=== PATIENT | female | born 1970 | race Caucasian/White ===

== ENCOUNTER 2016-08-10 23:44 | Observation (INO) | payer SELFPAY ==
[~2016-08-10] VITALS: Ht 160 cm; Wt 70.0 kg
[~2016-08-10 23:44] MED LIST: KCL10C PO
[2016-08-10 23:47] VITALS: BP 170/112; PULSE 76; RESP 18; TEMP 98.3; O2SAT 98
[2016-08-10 23:52] VITALS: RESP 16; O2SAT 98
--- NOTE | 2016-08-10 23:55 | PD ---
HPI Chief Complaint: Chest Pain Time Seen by Provider: 23:45 Travel History International Travel<30 days: No Contact w/Intl Traveler<30days: No Traveled to known affect area: No History of Present Illness HPI The patient is a 45-year-old female who presents to the emergency department for chest pain. The patient was watching TV earlier [employer], when she developed chest pain. The chest pain was left-sided, "achy " , radiated to left arm, and states that she felt like her "left arm is holding a bowling ball ". Patient denies any exertional symptoms with her chest pain, denied any shortness of breath, but did complain of mild nausea. The patient does have a history of hypertension and is noncompliant, but denies any known history of hyperlipidemia, artery disease, or diabetes. The patient does have a history of tobacco use and a pack and a half of cigarettes per day. She also notes a family history of early heart disease, states her father had his first IL in his 50s. The patient denies any previous history of stress test or cardiac catheterization. The patient does note recent fatigue that is worse with exertion, but denies any actual chest pain with exertion. Symptoms are moderate, no known alleviating or exacerbating factors. The patient took aspirin prior to arrival, 6 baby aspirin. The patient denies any previous history of pulmonary embolism, DVT, or recent prolonged travel, hospitalizations , or surgery. PFSH Past Medical History Cardiovascular Problems: Yes (HTN, angina) ?: Not LMP: 2 weeks ago : 8 Para: 4 Ectopic : Yes (X2) Social History Alcohol Use: Yes Tobacco Use: Yes (1PPD ) Substance Use: No Allergies-Medications (Allergen,Severity, Reaction): Coded Allergies: No Known Allergies (Unverified , 08/10/16) Reported Meds & Prescriptions Reported Meds & Active Scripts Active No Active Prescriptions or Reported Medications Review of Systems Except as stated in HPI: all other systems reviewed are Neg HENT: No: Lightheadedness Cardiovascular: Positive: Chest Pain or Discomfort, No: Tachycardia, Diaphoresis, Dyspnea on exertion Respiratory: No: Shortness of Breath Gastrointestinal: Positive: Nausea, No: Vomiting, Abdominal Pain Musculoskeletal: Positive: Weakness Neurologic: No: Dizziness Physical Exam Narrative GENERAL: Awake, alert, pleasant 45-year-old female who appears her stated age and is in no acute respiratory distress. SKIN: Warm and dry. HEAD: Atraumatic. Normocephalic. EYES: Pupils equal and round. No scleral icterus. No injection or drainage. ENT: No nasal bleeding or discharge. Mucous membranes pink and moist. NECK: Trachea midline. No JVD. CARDIOVASCULAR: Regular rate and rhythm. No murmur appreciated. RESPIRATORY: No accessory muscle use. Clear to auscultation. Breath sounds equal bilaterally. GASTROINTESTINAL: Abdomen soft, non-tender, nondistended. No rebound tenderness. MUSCULOSKELETAL: Right foot is in a postop shoe. NEUROLOGICAL: Awake and alert. No obvious cranial nerve deficits. Motor grossly within normal limits. Normal speech. PSYCHIATRIC: Appropriate mood and affect; insight and judgment normal. Data Data Last Documented VS Vital Signs Date Time Temp Pulse Resp B/P Pulse Ox O2 Delivery O2 Flow Rate FiO2 08/11/16 01:08 70 18 152/88 98 Room Air 08/10/16 23:47 98.3 Orders Electrocardiogram (08/10/16 23:51) Ckmb (Isoenzyme) Profile (08/10/16 23:51) Complete Blood Count With Diff (08/10/16 23:51) Comprehensive Metabolic Panel (08/10/16 23:51) Magnesium (Mg) (08/10/16 23:51) Prothrombin Time / Inr (Pt) (08/10/16 23:51) Act Partial Throm Time (Ptt) (08/10/16 23:51) Troponin I (08/10/16 23:51) Lipase (08/10/16 23:51) Chest, Single Ap (08/10/16 23:51) Ecg Monitoring (08/10/16 23:51) Bilateral Bp Monitoring (08/10/16 23:51) Iv Access Insert/Monitor (08/10/16 23:51) Oximetry (08/10/16 23:51) Oxygen Administration (08/10/16 23:51) Morphine Inj (Morphine Inj) (08/11/16 00:00) Nitroglycerin 2% Oint (Nitroglycerin 2% (08/11/16 00:00) Sodium Chloride 0.9% Flush (Ns Flush) (08/11/16 00:00) Ondansetron Inj (Zofran Inj) (08/11/16 00:00) CKMB (08/11/16 00:15) CKMB% (08/11/16 00:15) Labs Laboratory Tests Test 08/11/16 00:15 White Blood Count 5.5 TH/MM3 Red Blood Count 4.19 MIL/MM3 Hemoglobin 13.7 GM/DL Hematocrit 39.9 % Mean Corpuscular Volume 95.0 FL Mean Corpuscular Hemoglobin 32.6 PG Mean Corpuscular Hemoglobin 34.3 % Concent Red Cell Distribution Width 13.9 % Platelet Count 133 TH/MM3 Mean Platelet Volume 7.8 FL Neutrophils (%) (Auto) 56.1 % Lymphocytes (%) (Auto) 33.2 % Monocytes (%) (Auto) 8.0 % Eosinophils (%) (Auto) 2.2 % Basophils (%) (Auto) 0.5 % Neutrophils # (Auto) 3.1 TH/MM3 Lymphocytes # (Auto) 1.8 TH/MM3 Monocytes # (Auto) 0.4 TH/MM3 Eosinophils # (Auto) 0.1 TH/MM3 Basophils # (Auto) 0.0 TH/MM3 CBC Comment DIFF FINAL Differential Comment Prothrombin Time 10.0 SEC Prothromb Time International 0.9 RATIO Ratio Activated Partial 27.1 SEC Thromboplast Time Sodium Level 138 MEQ/L Potassium Level 3.9 MEQ/L Chloride Level 105 MEQ/L Carbon Dioxide Level 23.4 MEQ/L Anion Gap 10 MEQ/L Blood Urea Nitrogen 19 MG/DL Creatinine 0.81 MG/DL Estimat Glomerular Filtration 77 ML/MIN Rate Random Glucose 92 MG/DL Calcium Level 8.7 MG/DL Magnesium Level 1.7 MG/DL Total Bilirubin 0.4 MG/DL Aspartate Amino Transf 39 U/L (AST/SGOT) Alanine Aminotransferase 52 U/L (ALT/SGPT) Alkaline Phosphatase 85 U/L Total Creatine Kinase 121 U/L Creatine Kinase MB 1.6 NG/ML Troponin I LESS THAN 0.02 NG/ML Total Protein 7.5 GM/DL Albumin 3.9 GM/DL Lipase 212 U/L Exceptions Acute Myocardial Infarction ASA Not Given on Arrival: Already taken by patient MDM Medical Decision Making Medical Screen Exam Complete: Yes Emergency Medical Condition: Yes Medical Record Reviewed: Yes Interpretation(s) EKG reveals normal sinus rhythm with a rate of 70. Last Impressions Chest X-Ray 08/10/16 9328 Signed Impressions: Service Date/Time: Thursday, August 11, 2016 00:01 - CONCLUSION: No acute disease. Teja Mari MD Laboratory Tests Test 08/11/16 00:15 White Blood Count 5.5 TH/MM3 Red Blood Count 4.19 MIL/MM3 Hemoglobin 13.7 GM/DL Hematocrit 39.9 % Mean Corpuscular Volume 95.0 FL Mean Corpuscular Hemoglobin 32.6 PG Mean Corpuscular Hemoglobin 34.3 % Concent Red Cell Distribution Width 13.9 % Platelet Count 133 TH/MM3 Mean Platelet Volume 7.8 FL Neutrophils (%) (Auto) 56.1 % Lymphocytes (%) (Auto) 33.2 % Monocytes (%) (Auto) 8.0 % Eosinophils (%) (Auto) 2.2 % Basophils (%) (Auto) 0.5 % Neutrophils # (Auto) 3.1 TH/MM3 Lymphocytes # (Auto) 1.8 TH/MM3 Monocytes # (Auto) 0.4 TH/MM3 Eosinophils # (Auto) 0.1 TH/MM3 Basophils # (Auto) 0.0 TH/MM3 CBC Comment DIFF FINAL Differential Comment Prothrombin Time 10.0 SEC Prothromb Time International 0.9 RATIO Ratio Activated Partial 27.1 SEC Thromboplast Time Sodium Level 138 MEQ/L Potassium Level 3.9 MEQ/L Chloride Level 105 MEQ/L Carbon Dioxide Level 23.4 MEQ/L Anion Gap 10 MEQ/L Blood Urea Nitrogen 19 MG/DL Creatinine 0.81 MG/DL Estimat Glomerular Filtration 77 ML/MIN Rate Random Glucose 92 MG/DL Calcium Level 8.7 MG/DL Magnesium Level 1.7 MG/DL Total Bilirubin 0.4 MG/DL Aspartate Amino Transf 39 U/L (AST/SGOT) Alanine Aminotransferase 52 U/L (ALT/SGPT) Alkaline Phosphatase 85 U/L Total Creatine Kinase 121 U/L Creatine Kinase MB 1.6 NG/ML Troponin I LESS THAN 0.02 NG/ML Total Protein 7.5 GM/DL Albumin 3.9 GM/DL Lipase 212 U/L Differential Diagnosis Differential diagnosis includes acute coronary syndrome, cardiomyopathy, pulmonary embolism, esophageal spasm, GERD, pericarditis, myocarditis. Narrative Course IV was established, labs are drawn and sent, and the patient was placed on cardiac telemetry monitoring and continuous pulse oximetry monitoring. EKG was ordered and interpreted. The patient took aspirin prior to arrival, but was administered morphine, Zofran, and Nitropaste. Chest x-ray was obtained. Chest x-rays unremarkable. Initial troponin is negative. The patient does have risk factors including hypertension, tobacco use, and significant family medical history for CAD. Therefore, patient will be 23 hour observation to the chest pain center for serial cardiac enzymes and further evaluation by cardiology for possible stress test. Physician Communication Physician Communication The patient will be 23 hour observation to the chest pain center for serial cardiac enzymes and further evaluation by cardiology for possible stress test. Diagnosis Primary Impression: Chest pain Qualified Code: R07.9 - Chest pain, unspecified type Admitting Information Admitting Physician Requests: Observation Scripts No Active Prescriptions or Reported Meds Condition: Stable Peng Singh MD Aug 10, 2016 23:55
[2016-08-10 23:58] VITALS: BP_SYST 154; BP_SYST 170; BP_DIAS 102; BP_DIAS 112
[2016-08-11] VITALS (9 sets, daily range): BP systolic 128–163; BP diastolic 74–88; PULSE 60–75; RESP 18; TEMP 97.2–98.4; O2SAT 93–100
[2016-08-11] MEDS ORDERED: NITROGLYCERIN 2% OINT 1 GM PACKET TOP ONE
[2016-08-11] MEDS ORDERED: ONDANSETRON HCL 4 MG/2 ML VIAL IV PUSH ONE
[2016-08-11] MEDS ORDERED: MORPHINE SULFATE 4 MG/ML INJ IV PUSH ONE
--- NOTE | 2016-08-11 00:23 | RADRPT ---
EXAM DATE/TIME: 08/11/2016 00:01 [facility] COMPARISON: No previous studies available for comparison. INDICATIONS : Chest pain. MEDICAL HISTORY : None. SURGICAL HISTORY : None. ENCOUNTER: Initial ACUITY: 1 day PAIN SCORE: 4/10 LOCATION: Left chest FINDINGS: A single view of the chest demonstrates the lungs to be symmetrically aerated without evidence of mas s, infiltrate or effusion. The cardiomediastinal contours are unremarkable. Osseous structures are intact. CONCLUSION: No acute disease. Teja Mari MD on August 11, 2016 at 0:21 Board Certified Radiologist. This report was verified electronically.
[2016-08-11 00:33] LABS: AUTOMATED NEUTROPHIL # 3.1 TH/MM3 (1.8-7.7); BASOPHIL % 0.5 % (0.0-2.0); EOSINOPHIL # 0.1 TH/MM3 (0-0.4); EOSINOPHIL % 2.2 % (0.0-4.0); HEMATOCRIT 39.9 % (35.0-46.0); HEMO FLAGS DIFF FINAL; LYMPH % 33.2 % (9.0-44.0); LYMPHOCYTE # 1.8 TH/MM3 (1.0-4.8); MEAN CORPUSCULAR HEMOGLOBIN 32.6 PG (27.0-34.0); MEAN CORPUSCULAR HGB CONC 34.3 % (32.0-36.0); NEUT % 56.1 % (16.0-70.0); PLATELET COUNT 133 TH/MM3 (150-450); RED BLOOD COUNT 4.19 MIL/MM3 (4.00-5.30); RED CELL DISTRIBUTION WIDTH 13.9 % (11.6-17.2); WHITE BLOOD COUNT 5.5 TH/MM3 (4.0-11.0)
[2016-08-11 00:44] LABS: APTT (PATIENT) 27.1 SEC (24.3-30.1); INTERNATIONAL NORMALIZED RATIO 0.9 RATIO
[2016-08-11 00:54] LABS: ALT (GPT) 52 U/L (10-53); ANION GAP 10 MEQ/L (5-15); AST (GOT) 39 U/L (15-37); BICARBONATE 23.4 MEQ/L (21.0-32.0); BLOOD UREA NITROGEN 19 MG/DL (7-18); CHLORIDE 105 MEQ/L (98-107); GLOMERULAR FILTRATION RATE 77 ML/MIN (>89); MAGNESIUM 1.7 MG/DL (1.5-2.5); POTASSIUM 3.9 MEQ/L (3.5-5.1); SODIUM (NA) 138 MEQ/L (136-145)
[2016-08-11 00:58] LABS: ALKALINE PHOSPHATASE 85 U/L (45-117); CREATINE KINASE 121 U/L (26-192); TOTAL BILIRUBIN ADULT 0.4 MG/DL (0.2-1.0)
[2016-08-11 01:10] LABS: CKMB 1.6 NG/ML (0.5-3.6)
[2016-08-11] MEDS ORDERED: ACETAMINOPHEN 500 MG CPLT PO PRN (01:30)
[2016-08-11] MEDS ORDERED: NITROGLYCERIN 0.4 MG SL 25 TABS/BTL SL PRN (01:30)
[2016-08-11] MEDS ORDERED: ACETAMINOPHEN/HYDROcodone 325 MG/7.5 MG TAB PO PRN (01:30)
[2016-08-11] MEDS ORDERED: SODIUM CHLORIDE 0.9% FLUSH 5 ML FLUSH IVF PRN ×2 (01:30)
[2016-08-11] MEDS ORDERED: MORPHINE SULFATE 4 MG/ML INJ IV PRN (01:30)
[2016-08-11] MEDS ORDERED: ONDANSETRON HCL 4 MG/2 ML VIAL IV PRN (01:30)
[2016-08-11 03:51] LABS: CREATINE KINASE 81 U/L (26-192)
[2016-08-11 07:00] LABS: CREATINE KINASE 81 U/L (26-192)
[2016-08-11] MEDS ORDERED: amLODIPine BESYLATE 5 MG TAB PO ONE (08:45)
[2016-08-11] MEDS ORDERED: ASPIRIN 325 MG TAB PO SCH (09:00)
[2016-08-11] MEDS ORDERED: SODIUM CHLORIDE 0.9% FLUSH 5 ML FLUSH IVF SCH (09:00)
--- NOTE | 2016-08-11 10:05 | HHI.HP ---
HPI Primary Care Physician No Primary Care Physician Chief Complaint Chest pressure History of Present Illness 45-year-old female with known hypertension and tobacco use presents to the emergency room for further evaluation of chest pressure. States last evening she was watching TV, fell asleep, then when she woke up to use the restroom she developed left anterior chest "dull, aching." Radiation to her left arm. States left arm felt "heavy like holding a bowling ball." Duration lasted approximately 2 hours before calling the best to continue to have the chest pressure throughout the evening. Currently she has "mild pressure unchanged with breathing, movement, or position. No associated symptoms such as nausea, vomiting, shortness of breath, or diaphoresis. No known precipitating or relieving factors. Had similar chest pain episode approximately a year and half ago. Was told this was due to uncontrolled blood pressure after completing a stress test. She currently does not have insurance or a primary care provider. Has not taken blood pressure pressure. Medications in over one year. Endorses situational stress taking care of her 3 children that are mentally disabled. Review of Systems General: No fatigue,weakness, fever, chills, recent travel, recent illness, or change in appetite HEENT: No RO, no vision changes, no nasal congestion or drainage, no dysphasia CV: As stated above. Currently endorses "mild pressure" No palpitations, intermittent leg pain, or dizziness. RESP: No SOB, cough, wheeze, or recent URI GI: No nausea, vomiting, bowel changes, diarrhea, constipation, pain, distention , melena, blood in the stool. No change in appetite, no unintentional weight gain or weight loss : No dysuria, urgency, frequency, or hematuria EXT: No lower leg edema, no paraesthesias MS: Recently fractured her fourth and fifth digit on right foot. Wear knee brace. 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 SKIN: No rashes, no concerning lesions Past Family Social History Allergies: Coded Allergies: No Known Allergies (Unverified , 08/10/16) Past Medical History Hypertension-currently not taking BP medications 2 tubal pregnancies, states she does not have either fallopian tubes No known diabetes or hyperlipidemia. Past Surgical History None Reported Medications No Active Prescriptions or Reported Medications Cannot remember past BP medication she was taking. Does not take any vitamins and/or supplements. Active Ordered Medications Current Medications Medications (Trade) Dose Ordered Sig/Yola Route Start Time Stop Time Status Last Admin (Tylenol) 500 mg Q4H PRN PO 08/11/16 01:30 ([place] 7.5-325 Mg) 1 tab Q4H PRN PO 08/11/16 01:30 (Morphine Inj) 2 mg Q4H PRN IV 08/11/16 01:30 (Zofran Inj) 4 mg Q6H PRN IV 08/11/16 01:30 (Nitrostat Sl) 0.4 mg Q5M PRN SL 08/11/16 01:30 (Aspirin) 325 mg DAILY PO 08/11/16 09:00 Family History Father had CABG in his mid 50s. No early onset cardiovascular disease with mother or mother. 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 3 children that are mentally handicapped. She is a lifelong smoker. Currently smokes half pack cigarettes daily she is trying to quit tobacco. Denies any alcohol or illegal use. Past cardiac testing No recent stress testing. Believes 2 years ago she had a stress test this hospital. No records have been found. Has never had a cardiac catheterization. Physical Exam Vital Signs Vital Signs Date Time Temp Pulse Resp B/P Pulse Ox O2 Delivery O2 Flow Rate FiO2 08/11/16 07:00 97.2 70 18 137/74 95 08/11/16 05:51 98.4 60 18 128/76 93 08/11/16 04:13 60 08/11/16 03:47 97.7 67 18 140/79 96 08/11/16 03:00 63 18 131/75 100 Room Air 08/11/16 02:25 97 08/11/16 02:00 75 18 163/84 100 Room Air 08/11/16 01:08 70 18 152/88 98 Room Air 08/11/16 00:38 20 08/10/16 23:58 170/112 154/102 08/10/16 23:52 16 98 Room Air 08/10/16 23:47 98.3 76 18 170/112 98 Physical Exam GENERAL: Alert WN, WD, NAD, pleasant, female HEAD: NC, AT EYES: Sclera clear, conjunctiva without injection, pupils equal and round ENT: Mucous membranes pink and moist NECK: Supple, no masses, trachea midline CV: RRR, without murmur, rub, gallop, no JVD, S1-S2 no S3-S4. No carotid bruits RESP: Clear lungs throughout bilateral, no crackles, wheeze, rhonchi, symmetrical chest rise, nonlabored, able to speak in full sentences ABD: Soft, obese, NT, ND, no masses, positive bowel tones BACK: No CVAT, no scoliosis EXT: Pulses +24, no dependent edema MS: Normal tone 4 extremities, nontender, no obvious deformities, full range of motion, right orthopedic boot in place NEURO: CN II through CN XII grossly intact, motor strength 5/5, gait WNL PSYCH: A+O 3, pleasant affect, appropriate speech, appropriate mood and affect , insight and judgment SKIN: Normal turgor, normal texture, no lesions, no rashes, brisk cap refill, even hair distribution Laboratory Laboratory Tests Test 08/11/16 08/11/16 08/11/16 00:15 02:50 06:00 White Blood Count 5.5 Red Blood Count 4.19 Hemoglobin 13.7 Hematocrit 39.9 Mean Corpuscular Volume 95.0 Mean Corpuscular Hemoglobin 32.6 Mean Corpuscular Hemoglobin 34.3 Concent Red Cell Distribution Width 13.9 Platelet Count 133 Mean Platelet Volume 7.8 Neutrophils (%) (Auto) 56.1 Lymphocytes (%) (Auto) 33.2 Monocytes (%) (Auto) 8.0 Eosinophils (%) (Auto) 2.2 Basophils (%) (Auto) 0.5 Neutrophils # (Auto) 3.1 Lymphocytes # (Auto) 1.8 Monocytes # (Auto) 0.4 Eosinophils # (Auto) 0.1 Basophils # (Auto) 0.0 CBC Comment DIFF FINAL Differential Comment Prothrombin Time 10.0 Prothromb Time International 0.9 Ratio Activated Partial 27.1 Thromboplast Time Sodium Level 138 Potassium Level 3.9 Chloride Level 105 Carbon Dioxide Level 23.4 Anion Gap 10 Blood Urea Nitrogen 19 Creatinine 0.81 Estimat Glomerular Filtration 77 Rate Random Glucose 92 Calcium Level 8.7 Magnesium Level 1.7 Total Bilirubin 0.4 Aspartate Amino Transf 39 (AST/SGOT) Alanine Aminotransferase 52 (ALT/SGPT) Alkaline Phosphatase 85 Total Creatine Kinase 121 81 81 Creatine Kinase MB 1.6 Troponin I LESS THAN 0.02 LESS THAN 0.02 LESS THAN 0.02 Total Protein 7.5 Albumin 3.9 Lipase 212 Result Diagram: 08/11/165 08/11/165 Imaging Last Impressions Chest X-Ray 08/10/16 4301 Signed Impressions: Service Date/Time: Thursday, August 11, 2016 00:01 - CONCLUSION: No acute disease. Teja Mari MD Course EKGs 3 EKG showed normal sinus rhythm with nonspecific STT-segment changes Assessment and Plan Assessment and Plan #1 Chest painadmitted to chest pain center. Was ruled out with 3 sets of EKGs and cardiac enzymes. With monitored overnight. Was seen and evaluated by Dr. Negin Max. Will complete a chemical stress test as patient is unable to walk on treadmill at this time. If stress test is unremarkable she will be later discharged this afternoon. #2 Hypertension5 mg 1 dose. Will continue to monitor. Case management consult has been placed for assistance to [facility]. Encouraged daily activity and a low-sodium diet. Instructed in taking blood pressure log with her to primary care appointment. Discussed importance of tight blood pressure control and compliance with medication. #3 Tobacco usestrongly encouraged and stressed the importance of tobacco cessation. Discussed and counseled patient to quit smoking. Nikia Pina Aug 11, 2016 10:05
[2016-08-11] MEDS ORDERED: REGADENOSON INJ 0.4 MG/5 ML SYR ONE (10:30)
--- NOTE | 2016-08-11 11:45 | RADRPT ---
EXAM DATE/TIME: 08/11/2016 09:47 [facility] COMPARISON: No previous studies available for comparison. INDICATIONS : Left sided chest pain radiating to left arm for 1 day. Smoker. Angina. DOSE: 25.8 mCi Tc99m Myoview at stress. 8.8 mCi Tc99m Myoview at rest. 0.4 mg Lexiscan STRESS SYMPTOMS: Dyspnea, neck pressure and tingling. EJECTION FRACTION: 60% MEDICAL HISTORY : Hypertension. SURGICAL HISTORY : Back surgery. ENCOUNTER: Initial ACUITY: 1 day PAIN SCALE: 3/10 LOCATION: Left chest TECHNIQUE: The patient underwent pharmacologic stress with infusion of prescribed dose. Continuous ECG tracing was monitored during stress. Gated SPECT imaging was performed after stress and conventional SPECT i maging was performed at rest. The examination was performed on a SPECT/CT scanner, both attenuation and non-corrected datasets were reviewed. FINDINGS: DISTRIBUTION: The maximum perfused segment at stress is in the anterior lateral wall. Moderate gut activity does ob scure the inferior wall. PERFUSION STUDY: The pattern of perfusion at stress is within normal limits. GATED STUDY: There is intact wall motion and thickening without hypokinetic or dyskinetic segments. CONCLUSION: Negative for stress-induced ischemia.. RISK CATEGORY: Low (<1% Annual Mortality Rate) Nahum Spicer MD FACR on August 11, 2016 at 11:42 Board Certified Radiologist. This report was verified electronically.
--- NOTE | 2016-08-11 12:02 | HHI.DCPOC ---
Discharge Care Plan Diagnosis: (1) Atypical chest pain (2) Hypertension Goals to Promote Your Health * To prevent worsening of your condition and complications * To maintain your health at the optimal level Directions to Meet Your Goals Take your medications as prescribed Follow your dietary instruction Follow activity as directed Keep your appointments as scheduled Take your immunizations and boosters as scheduled If your symptoms worsen call your PCP, if no PCP go to Urgent Care Center or Emergency Room Smoking is Dangerous to Your Health. Avoid second hand smoke Call the 24-hour hour crisis hotline for domestic abuse at Nikia Pina Aug 11, 2016 12:02
[2016-08-11] MEDS ORDERED: LISI10TA3 PO (12:08)
--- NOTE | 2016-08-11 15:44 | EKG ---
Date Performed: 08/11/2016 Time Performed: 02:49:54 PTAGE: 45 years EKG: Sinus rhythm NONSPECIFIC ST & T-WAVE ABNORMALITY BORDERLINE ECG Since PREVIOUS TRACING , no significant change noted PREVIOUS TRACIN12/07/2015 18.43 DOCTOR: Negin Max Interpretating Date/Time 08/11/2016 15:42:26
--- NOTE | 2016-08-11 15:44 | EKG ---
Date Performed: 08/10/2016 Time Performed: 23:55:08 PTAGE: 45 years EKG: Sinus rhythm NONSPECIFIC ST & T-WAVE ABNORMALITY BORDERLINE ECG Since previous tracing, no significant change not ed NO PREVIOUS TRACING DOCTOR: Negin Max Interpretating Date/Time 08/11/2016 15:41:48
--- NOTE | 2016-08-11 15:45 | EKG ---
Date Performed: 08/11/2016 Time Performed: 06:00:15 PTAGE: 45 years EKG: Sinus rhythm NONSPECIFIC T-WAVE ABNORMALITY BORDERLINE ECG Since PREVIOUS TRACING , no significant change noted PREVIOUS TRACIN08/11/2016 02.49 DOCTOR: Negin Max Interpretating Date/Time 08/11/2016 15:42:42
--- NOTE | 2016-08-11 15:45 | TR ---
Date Performed: 08/11/2016 Time Performed: 10:31:04 DOCTOR: Negin Max DRUG LIST: CLINICAL HISTORY: REASON FOR TEST: CHEST PAIN REASON FOR ENDING: OBSERVATION: CONCLUSION: Lexiscan stress test was performed under standard four minute protocol. Radionucl[place] e was injected one minute prior to ending the test. No electrocardiographic abormalities were present to suggest ischemia. Nuclear imaging and interpretation are pending. COMMENTS:
== END 2016-08-11 14:00 | disposition home or self-care (01) ==
LOC: NEPC 23:44 → NEDA 08-11 01:32 → NEPGCP 08-11 03:22
PROVIDERS: ADMIT Internal Medicine Interventional Cardiology; ATTEND Internal Medicine Interventional Cardiology
DX: R07.9 Chest pain, unspecified (principal); M79.602 Pain in left arm; R11.0 Nausea; Z91.19 Patient's noncompliance with other medical treatment and regimen; I10 Essential (primary) hypertension; F17.210 Nicotine dependence, cigarettes, uncomplicated; I20.9 Angina pectoris, unspecified
CPT/HCPCS: 71010; 78452; 80053; 82550; 82552; 83690; 83735; 84484; 85025; 85610; 85730; 93005; 93017; 96374; 96375; 99285; A9502; G0378; J2270; J2405; J2785

== ENCOUNTER 2017-05-21 17:24 | Emergency (ER) | payer SELFPAY ==
[~2017-05-21 17:24] MED LIST changes: +CEPH-460 PO; -KCL10C PO; +[UNRECOGNIZED DRUG - REMARK]
[2017-05-21 17:26] VITALS: BP 148/102; PULSE 95; RESP 18; TEMP 99; O2SAT 99
--- NOTE | 2017-05-21 17:56 | RADRPT ---
EXAM DATE/TIME: 05/21/2017 17:46 [facility] COMPARISON: No previous studies available for comparison. INDICATIONS : Left foot pain after fall carrying groceries. MEDICAL HISTORY : None. SURGICAL HISTORY : None. ENCOUNTER: Initial ACUITY: 1 day PAIN SCORE: 8/10 LOCATION: Left medial foot. FINDINGS: Three view examination of the left foot demonstrates no soft tissue swelling, dislocation, or fractur e. The tarsal bones appear intact. The interphalangeal and metatarsophalangeal joints are intact. The calcaneus is intact. Bony mineralization is normal. CONCLUSION: 1. Negative examination of the foot. Ricardo Porter MD on May 21, 2017 at 17:53 Board Certified Radiologist. This report was verified electronically.
[2017-05-21] MEDS ORDERED: IBUPROFEN 600 MG TAB PO ONE (19:00)
--- NOTE | 2017-05-21 19:04 | PD ---
HPI . Left foot pain Chief Complaint: Injury Time Seen by Provider: 18:29 Travel History International Travel<30 days: No Contact w/Intl Traveler<30days: No Traveled to known affect area: No History of Present Illness HPI 46-year-old female presents to emergency room for evaluation of left hip pain after falling down steps this afternoon. Patient has been ambulatory with a limp since the fall. Patient denies any other injuries during this fall. Patient denies any head or lose consciousness. Patient is not on any blood thinners. PFSH Past Medical History Heart Rhythm Problems: No Cardiac Catheterization: No Cardiovascular Problems: Yes (HTN) High Cholesterol: No Chest Pain: Yes Congestive Heart Failure: No Diabetes: No Diminished Hearing: No Hypertension: Yes : 8 Para: 4 Ectopic : Yes (X2) Dilation and Curettage (D&C): Yes Past Surgical History Coronary Artery Bypass Graft: No Thoracic Surgery: Yes (laser surgery on spine as a child) Social History Alcohol Use: Yes (occasional) Tobacco Use: Yes (1/2 PPD ) Substance Use: No Allergies-Medications (Allergen,Severity, Reaction): Coded Allergies: No Known Allergies (Unverified , 08/10/16) Reported Meds & Prescriptions Reported Meds & Active Scripts Active Keflex (Cephalexin) 500 Mg Cap 500 Mg PO Q12H 10 Days Reported [unk bp med] DAILY Review of Systems Except as stated in HPI: all other systems reviewed are Neg Physical Exam Narrative GENERAL: Well-nourished, well-developed 46-year-old female patient in no acute distress. Nontoxic appearing. SKIN: Focused skin assessment warm/dry. HEAD: Normocephalic. Atraumatic. EYES: No scleral icterus. No injection or drainage. NECK: Supple, trachea midline. No JVD or lymphadenopathy. CARDIOVASCULAR: Regular rate and rhythm without murmurs, gallops, or rubs. Pedal pulses +2 bilaterally. RESPIRATORY: Breath sounds equal bilaterally. No accessory muscle use. GASTROINTESTINAL: Abdomen soft, non-tender, nondistended. MUSCULOSKELETAL: Left dorsal lateral aspect of foot foot mildly edematous and ecchymotic. Data Data Last Documented VS Vital Signs Date Time Temp Pulse Resp B/P (MAP) Pulse Ox O2 Delivery O2 Flow Rate FiO2 05/21/17 17:26 99.0 95 18 148/102 (117) 99 Orders Orders Foot, Complete ([id number]) (05/21/17 ) Ibuprofen (Motrin) (05/21/17 19:00) MDM Medical Decision Making Medical Screen Exam Complete: Yes Emergency Medical Condition: Yes Differential Diagnosis Differential diagnoses include but not limited to fracture, sprain, contusion Narrative Course 46-year-old female presents emergency department for left lateral foot pain after falling down stairs. X-ray of the left foot ordered and pending. X-ray of the left foot is negative for any fractures. Patient is discharged home with ice therapy instructions for the left foot, the foot is Addy wrapped and patient given postop shoe and crutches. Patient instructed to return the emergency Department with any worsening condition but otherwise follow-up primary care or orthopedics. Diagnosis Primary Impression: Contusion, foot Qualified Codes: S90.32XA - Contusion of left foot, initial encounter Referrals: Orthopedist Primary Care Physician Patient Instructions: Foot Contusion (ED), General Instructions Additional Instructions: Please return to emergency department if your symptoms return or worsen. Follow up with your primary care provider. Rice therapy to left foot, rest, ice, addy wrap and post op shoe to left foot with activity and elevate with resting. Crutches until symptoms resolve. May use [id number] ibuprofen as needed for pain or swelling. Disposition: 01 DISCHARGE HOME Condition: Stable Rose Greene May 21, 2017 19:04
== END 2017-05-21 19:18 | disposition home or self-care (01) ==
LOC: NEPK 17:24
DX: S90.32XA Contusion of left foot, initial encounter (principal); I10 Essential (primary) hypertension; F17.200 Nicotine dependence, unspecified, uncomplicated; W10.9XXA Fall (on) (from) unspecified stairs and steps, initial encounter; Z79.899 Other long term (current) drug therapy
CPT/HCPCS: 73630; 99283; E0113; L3260

== ENCOUNTER 2017-08-31 09:12 | Emergency (ER) | payer SELFPAY ==
[~2017-08-31] VITALS: Ht 160 cm; Wt 68.0 kg
[2017-08-31 09:16] VITALS: BP 192/121; PULSE 95; RESP 18; TEMP 100.4; O2SAT 98
[2017-08-31 09:27] VITALS: BP 148/87; PULSE 79; RESP 18; O2SAT 98
[2017-08-31] MEDS ORDERED: ACETAMINOPHEN 500 MG CPLT PO ONE (09:45)
--- NOTE | 2017-08-31 09:50 | PD ---
HPI Chief Complaint: Cold / Flu Symptoms Time Seen by Provider: 09:28 Travel History International Travel<30 days: No Contact w/Intl Traveler<30days: No Traveled to known affect area: No History of Present Illness HPI The patient was seen and examined in the presence of the nurse. This patient complains of fever and cough and body aches. Duration 2 days. She is not short of breath. No alleviating factors. No exacerbating factors. She has history of hypertension but does not have her amlodipine anymore. Initial blood pressure very high. PFSH Past Medical History Heart Rhythm Problems: No Cardiac Catheterization: No Cardiovascular Problems: Yes (HTN) High Cholesterol: No Chest Pain: Yes Congestive Heart Failure: No Diabetes: No Diminished Hearing: No Hypertension: Yes ?: Unknown : 8 Para: 4 Ectopic : Yes (X2) Dilation and Curettage (D&C): Yes Past Surgical History Coronary Artery Bypass Graft: No Thoracic Surgery: Yes (laser surgery on spine as a child) Family History Family Myocardial Infarction: Yes Social History Alcohol Use: Yes (occasional) Tobacco Use: Yes (1/2 PPD ) Substance Use: No Allergies-Medications (Allergen,Severity, Reaction): Coded Allergies: No Known Allergies (Unverified Adverse Reaction, Unknown, 08/31/17) Reported Meds & Prescriptions Reported Meds & Active Scripts Active No Active Prescriptions or Reported Medications Review of Systems General / Constitutional: Positive: Fever Eyes: No: Visual changes HENT: No: Headaches Cardiovascular: No: Chest Pain or Discomfort Respiratory: Positive: Cough, No: Shortness of Breath Gastrointestinal: No: Abdominal Pain Genitourinary: No: Dysuria Musculoskeletal: Positive: Myalgias, No: Pain Skin: No Rash Neurologic: No: Weakness Psychiatric: No: Depression Endocrine: No: Polydipsia Hematologic/Lymphatic: No: Easy Bruising Physical Exam Narrative GENERAL: Well-nourished, well-developed patient in no apparent distress. SKIN: Focused skin assessment reveals no rash and nodules. Skin is Warm and dry. HEAD: Atraumatic. Normocephalic. EYES: Pupils equal and round. No scleral icterus. No injection or drainage. ENT: No nasal bleeding or discharge. Mucous membranes pink and moist. Throat clear and TMs normal NECK: Trachea midline. No JVD. No meningeal signs CARDIOVASCULAR: Regular rate and rhythm. No murmur appreciated. RESPIRATORY: No accessory muscle use. Clear to auscultation. Breath sounds equal bilaterally. GASTROINTESTINAL: Abdomen soft, non-tender, nondistended. Hepatic and splenic margins not palpable. MUSCULOSKELETAL: No obvious deformities. No clubbing. No cyanosis. No edema. NEUROLOGICAL: Awake and alert. No obvious cranial nerve deficits. Motor grossly within normal limits. Normal speech. PSYCHIATRIC: Appropriate mood and affect; insight and judgment normal. Data Data Last Documented VS Vital Signs Date Time Temp Pulse Resp B/P (MAP) Pulse Ox O2 Delivery O2 Flow Rate FiO2 08/31/17 12:19 99.8 69 18 149/85 (106) 98 Room Air Orders Orders Influenzae A/B Antigen (08/31/17 09:34) Acetaminophen (Tylenol) (08/31/17 09:45) Chest, Single Ap (08/31/17 ) MDM Medical Decision Making Medical Screen Exam Complete: Yes Emergency Medical Condition: Yes Medical Record Reviewed: Yes Differential Diagnosis Pneumonia, flu syndrome, bronchitis, accelerated hypertension Narrative Course I have reviewed the patient's electronic medical record. I gave her Tylenol for fever I reviewed her chest x-ray is normal Influenza swab was positive for influenza A Recheck of the blood pressure reveals it is improved but still elevated She is advised to check and record her daily I am going to refill her blood pressure medicine for 1 month Diagnosis Primary Impression: Influenza A Additional Impression: Accelerated hypertension Departure Forms: Tests/Procedures Additional Instructions: The patient was advised to follow up with their physician and return if they worsen. Check and record blood pressure daily Med/Other Pt SpecificInfo: Prescription(s) given Scripts No Active Prescriptions or Reported Meds Disposition: 01 DISCHARGE HOME Condition: Stable Floyd Gonzalez MD Aug 31, 2017 09:50
--- NOTE | 2017-08-31 09:54 | RADRPT ---
EXAM DATE/TIME: 08/31/2017 09:40 [facility] COMPARISON: FOOT LEFT COMPLETE ([id number]), May 21, 2017, 17:46. INDICATIONS : Cough and chest tightness. MEDICAL HISTORY : Hypertension. SURGICAL HISTORY : None. ENCOUNTER: Initial ACUITY: 4 - 6 days PAIN SCORE: 0/10 LOCATION: Bilateral chest FINDINGS: A single view of the chest demonstrates the lungs to be symmetrically aerated without evidence of mas s, infiltrate or effusion. The cardiomediastinal contours are unremarkable. Osseous structures are intact. CONCLUSION: 1. No acute cardiopulmonary findings. Van Spicer MD on August 31, 2017 at 9:52 Board Certified Radiologist. This report was verified electronically.
[2017-08-31 10:50] VITALS: BP 160/91; PULSE 82; RESP 18; TEMP 100.7; O2SAT 98
[2017-08-31 12:19] VITALS: BP 149/85; PULSE 69; RESP 18; TEMP 99.8; O2SAT 98
[2017-08-31] MEDS ORDERED: AMLO10TA2 PO (13:25)
== END 2017-08-31 13:41 | disposition home or self-care (01) ==
LOC: NEPC 09:12
DX: J10.1 Influenza due to other identified influenza virus with other respiratory manifestations (principal); I10 Essential (primary) hypertension; F17.200 Nicotine dependence, unspecified, uncomplicated
CPT/HCPCS: 71045; 87804; 99284